=== PATIENT | male | born 1975 | race Caucasian/White ===

== ENCOUNTER 2025-04-15 23:55 | Emergency (ER) | payer MEDICAID, SELFPAY ==
[2025-04-16 00:16] VITALS: BP 141/92; PULSE 117; RESP 16; TEMP 37.1; O2SAT 96; BMI 37.5
--- NOTE | 2025-04-16 00:46 | USR_ITS ---
PROCEDURE INFORMATION: Exam: US Scrotum and US Duplex Artery and Vein, Scrotum, Complete Exam date and time: 04/16/2025 2:26 AM Age: 50 years old Clinical indication: Scrotum pain; Additional info: Pain and swelling TECHNIQUE: Imaging protocol: Real-time ultrasound of the scrotum. Real-time duplex ultrasound scan of the arterial and venous flow of the scrotum with B-mode, color Doppler flow and spectral waveform analysis. Complete exam. Duplex exam was performed to evaluate for torsion and other vascular conditions. COMPARISON: No relevant prior studies available. FINDINGS: Right: The right testicle measures 50 x 20 x 21 mm, estimated volume 10.8 cc. No visible intratesticular mass. Duplex Doppler evaluation, with color flow and spectral waveform analysis, demonstrates intratesticular arterial and venous blood flow. The right epididymis was not definitely/easily visualized according to the technologist. No obvious evidence for enlarged or inflamed epididymis on the provided images. There is extremely large amount of right scrotal fluid. This measures at least 9 x 6 x 7.5 cm in size. There are small amount of low-level echoes within the fluid, minimal septation/loculations. Left: The left testicle measures 53 x 19 x 24 mm, estimated volume 12.8 cc. No visible intratesticular mass. Duplex Doppler evaluation, with color flow and spectral waveform analysis, demonstrates intratesticular arterial and venous blood flow. The left epididymis was not definitely/easily visualized according to the technologist. No obvious evidence for enlarged or inflamed epididymis on the provided images. There is extremely large amount of left scrotal fluid. This measures about least 10 x 8 x 9 cm in size. There are small amount of low-level echoes within the fluid, minimal septation/loculations. US/US scrotum [id number] IMPRESSION: 1. Extremely large hydroceles bilaterally, details above. 2. No evidence for torsion by Doppler ultrasound. 3. No findings to suggest epididymitis, however neither epididymis was well visualized according to the technologist. 4. Other details discussed above.
[2025-04-16 03:00] VITALS: BP 158/95; PULSE 112; RESP 16; O2SAT 95
--- NOTE | 2025-04-16 03:34 | ED_ITS ---
HPI - Male Genitourinary General: Chief complaint: Urogenital-Male Stated complaint: Testicular pain Time Seen by Provider: 04/16/25 03:20 History of Present Illness: 50-year-old male patient complaining of bilateral testicle swelling for the last 1.5 years. He was in quite a bit of pain earlier, with worsening swelling of his testicles. He states that last evening, he was packing, up and active. His testicles became more swollen and painful, and he could only stand for a few minutes at a time. He denies fever. He denies urinary symptoms such as frequency urgency or dysuria. No penile discharge. He had this problem evaluated in [place] last year, was told he may have a hernia, and then told he in fact did not have a hernia, but had swelling on his testicles instead. He then moved here, and did not follow-up. Related Data Home Medications ?Medication ?Instructions ?Recorded ?Confirmed No Known Home Medications 04/05/2503/16 Allergies Allergy/AdvReac Type Severity Reaction Status Date / Time sulfamethoxazole (From Allergy ADR-Vomitin Verified 04/16/25 00:20 Bactrim) g trimethoprim (From Bactrim) Allergy ADR-Vomitin Verified 04/16/25 00:20 g Physical Exam Const: COMMON NORMALS: no acute distress HENMT: COMMON NORMALS: normocephalic HEAD & SCALP: normocephalic Resp: COMMON NORMALS: normal respiratory effort and No use of accessory muscles Cardio: COMMON NORMALS: regular rate and regular rhythm RATE: regular rate RHYTHM: regular rhythm : SCROTUM: Yes Scrotal tenderness present (mild) and Yes scrotal swelling Scrotal swelling laterality: bilateral Scrotal swelling consistent with: hydrocele Skin: NARRATIVE SKIN EXAM: no significant cellulitis Course Vital Signs: Vital signs: Vital Signs Temperature 98.7 F 04/16/25 00:16 Pulse Rate 114 H 04/16/25 04:03 Respiratory Rate 16 04/16/25 04:03 Blood Pressure 170/98 04/16/25 04:03 Pulse Oximetry 95 04/16/25 04:03 Oxygen Delivery Me thod Room Air 04/16/25 04:03 MDM - Male Medical Decision Making The patient chose to leave AGAINST MEDICAL ADVICE prior to his urinalysis being resulted. He does show potentially a mild urinary tract infection, although findings are equivocal. Ultrasound showed large hydroceles bilaterally without acute findings. Lab Data Radiology Impressions Scrotum Ultrasound 04/16/25 00:46 IMPRESSION: 1. Extremely large hydroceles bilaterally, details above. 2. No evidence for torsion by Doppler ultrasound. 3. No findings to suggest epididymitis, however neither epididymis was well visualized according to the technologist. 4. Other details discussed above. Laboratory Results Urine Color Yellow (Yellow) 04/16/25 03:37 Urine Appearance Clear (CLEAR) 04/16/25 03:37 Urine pH 5.0 (5-7) 04/16/25 03:37 Ur Specific [place] 1.026 (1.005-1.030) 04/16/25 03:37 Urine Protein 2+ (Negative) A 04/16/25 03:37 Urine Glucose (UA) Negative (Normal) 04/16/25 03:37 Urine Ketones Trace (Negative) 04/16/25 03:37 Urine Blood Negative (Negative) 04/16/25 03:37 Urine Nitrate Negative (Negative) 04/16/25 03:37 Urine Bilirubin Negative (Negative) 04/16/25 03:37 Urine Urobilinogen 1.0 mg/dL (Negative) 04/16/25 03:37 Ur Leukocyte Esterase 1+ (Negative) A 04/16/25 03:37 Urine RBC 0-2 /hpf (0-2) 04/16/25 03:37 Urine WBC 21-50 /hpf (0-5) H 04/16/25 03:37 Ur Squamous Epith Cells 0-5 /hpf (0-5) 04/16/25 03:37 Amorphous Sediment Not Reportable 04/16/25 03:37 Urine Bacteria None seen /hpf (NONE) 04/16/25 03:37 Hyaline Casts 3.30 /lpf 04/16/25 03:37 All radiology interpretation(s) finalized by discharge Discharge Plan Discharge Patient Disposition: Left Against Medical Advice Clinical Impression: Bilateral hydrocele Condition: Stable Prescriptions: No Action No Known Home Medications Print Language: Japanese Coding Level of Care Code ED Sr. [employer] System Administrator for Reina Cruz
[2025-04-16 04:03] VITALS: BP 170/98; PULSE 114; RESP 16; O2SAT 95
[2025-04-16 04:48] LABS: Bilirubin Urine Negative (Negative); Blood Urine Negative (Negative); Glucose Urine UA Negative (Normal); Ketones Urine Trace (Negative); Leukocyte Esterase Urine 1+ (Negative); Nitrate Urine Negative (Negative); Protein Urine 2+ (Negative); Specific Gravity, Urine 1.026 (1.005-1.030); Urine Appearance Clear (CLEAR); Urine Color Yellow (Yellow)
[2025-04-16 04:53] LABS: Add Urine Microscopic? YES; Bacteria Urine None Seen /hpf; RBC Urine 0-2 /hpf (0-2); Squamous Epithelial Cell Urine 0-5 /hpf (0-5); WBC Urine 21-50 /hpf (0-5)
== END 2025-04-16 04:49 | disposition left against medical advice (07) ==
PROVIDERS: Emergency Provider Emergency Medicine
DX: N43.3 Hydrocele, unspecified (principal)
CPT/HCPCS: 76870; 81001; 99284